=== PATIENT | male | born 1945 | race Caucasian/White ===

== ENCOUNTER 2018-06-01 16:30 | Observation (INO) | payer MEDICARE, OTHER ==
[~2018-06-01] VITALS: Ht 177.8 cm; Wt 86.8 kg
--- NOTE | 2018-06-01 16:50 | NUR ---
PT SENT FROM W/ "SLIGHTLY ELEVATED ST", EKG UPON ARRIVAL NOT STEMI CRITERIA. PT REPORTS INTERMITTENT CP X 1 MONTH, MOST RECENT EPISODE BEGINNING 3 DAYS AGO. PT REPORTS ACHING SENSATION, MOSTLY RESOLVED AT THIS TIME. MD PUENTE AT BEDSIDE TO ASSESS PT.
[2018-06-01] MEDS ORDERED: ASPIRIN 81 MG TABLET CHEW PO ONE (17:00)
[2018-06-01 17:05] LABS: BASOPHILS # (AUTO) 0.02 x10^3/uL (0-0.1); BASOPHILS % (AUTO) 0 % (0-1); EOSINOPHILS # (AUTO) 0.22 x10^3/uL (0-0.4); EOSINOPHILS % (AUTO) 3 % (1-7); LYMPHOCYTES # (AUTO) 1.56 x10^3/uL (1-3.4); LYMPHOCYTES % (AUTO) 22 % (22-44); MD NO; MEAN CORPUSCULAR HEMOGLOBIN 26.7 pg (27.5-34.5); MEAN CORPUSCULAR HGB CONC 33.4 g/dL (33.2-36.2); MEAN CORPUSCULAR VOLUME 79.8 fL (81-97); MEAN PLATELET VOLUME 8.6 fL (7.4-10.4); MONOCYTES # (AUTO) 0.65 x10^3/uL (0.2-0.8); MONOCYTES % (AUTO) 9 % (2-9); NEUTROPHILS # (AUTO) 4.61 x10^3/uL (1.8-6.8); NEUTROPHILS % (AUTO) 65 % (42-75); PLATELET COUNT 234 x10^3/uL (130-400); RED BLOOD COUNT 5.28 x10^6/uL (4.38-5.82)
[2018-06-01] MEDS ORDERED: ASPIRIN 81 MG TABLET CHEW ONE (17:11)
[2018-06-01 17:13] LABS: ALBUMIN 3.9 g/dL (3.4-5.0); ANION GAP 4 mmol/L (5-15); CALCIUM 9.2 mg/dL (8.5-10.1); CHLORIDE 106 mmol/L (98-107)
[2018-06-01 17:18] LABS: TROPONIN I < 0.015 ng/mL (0.000-0.045)
--- NOTE | 2018-06-01 17:36 | NUR ---
ASSUMED CARE OF PT AT THIS TIME. PT AMBULATORY TO RESTROOM W/ STEADY GAIT. FAMILY AT BEDSIDE. PT TOLERATED ACTIVITY WELL, NOTED CHEST PRESSURE AT 1/10 FOLLOWING ACTIVITY. CONTINOUS SPO2 AND CARDIAC MONITORING IN PLACE. VSS
[2018-06-01] MEDS ORDERED: AMLO10TA8 PO (17:46)
[2018-06-01] MEDS ORDERED: METF500T17 PO (17:46)
[2018-06-01] MEDS ORDERED: GLIM2TAB2 PO (17:46)
[2018-06-01] MEDS ORDERED: LOVA20TA2 PO (17:46)
[2018-06-01] MEDS ORDERED: LOSA50TA14 PO (17:46)
[2018-06-01] MEDS ORDERED: ATEN100T PO (17:46)
[2018-06-01] MEDS ORDERED: PIOG30TA67 PO (17:46)
[2018-06-01] MEDS ORDERED: MELO7.5T31 PO (17:46)
[2018-06-01] MEDS ORDERED: LINA5TAB PO (17:46)
--- NOTE | 2018-06-01 18:45 | NUR ---
REPORT CALLED TO EVANGELIST DOUGLAS RN. AWAITING TRANSPORT TO [facility]. REPORT GIVEN TO TAMAR WALSH IN ED WHILE AWAITING TRANSPORT.
[2018-06-01 19:29] VITALS: BP 149/81
[2018-06-01 19:30] VITALS: BP 149/81
[2018-06-01] MEDS ORDERED: morphine SULFATE 10 MG/ML, 1ML IVPush PRN (19:30)
[2018-06-01] MEDS ORDERED: ONDANSETRON ODT 4 MG PO PRN (19:30)
[2018-06-01] MEDS ORDERED: BISACODYL 10 MG SUPP PR PRN (19:30)
[2018-06-01] MEDS ORDERED: ACETAMINOPHEN 325 MG TABLET PO PRN (19:30)
[2018-06-01] MEDS ORDERED: NITROGLYCERIN 0.4 MG BOTTLE (25 TABS) SL PRN (19:30)
[2018-06-01] MEDS ORDERED: POLYETHYLENE GLYCOL 17 GM PACKET PO PRN (19:30)
[2018-06-01 19:57] LABS: HEMOGLOBIN A1C 7.1 % (4.2-6.3)
[2018-06-01] MEDS: INSULIN LISPRO 100 UNITS/ML, PEN SQ-INSULIN SCH (20:38)
[2018-06-01] MEDS: SODIUM CHLORIDE FLUSH 10ML SYR IVF SCH (20:39)
[2018-06-01] MEDS: HEPARIN 5,000 UNITS/ML, 1ML SQ SCH (20:40)
[2018-06-01] MEDS ORDERED: LOVASTATIN 20 MG TABLET PO SCH (21:00)
[2018-06-02 00:06] LABS: TROPONIN I < 0.015 ng/mL (0.000-0.045)
[2018-06-02] MEDS: HEPARIN 5,000 UNITS/ML, 1ML SQ SCH ×2 (03:09→11:30)
[2018-06-02 03:30] VITALS: BP 145/66
[2018-06-02 05:31] LABS: BASOPHILS # (AUTO) 0.02 x10^3/uL (0-0.1); BASOPHILS % (AUTO) 0 % (0-1); EOSINOPHILS % (AUTO) 4 % (1-7); LYMPHOCYTES # (AUTO) 1.28 x10^3/uL (1-3.4); LYMPHOCYTES % (AUTO) 24 % (22-44); MD NO; MEAN CORPUSCULAR HEMOGLOBIN 26.9 pg (27.5-34.5); MEAN CORPUSCULAR HGB CONC 33.5 g/dL (33.2-36.2); MEAN CORPUSCULAR VOLUME 80.2 fL (81-97); MEAN PLATELET VOLUME 8.8 fL (7.4-10.4); MONOCYTES # (AUTO) 0.51 x10^3/uL (0.2-0.8); MONOCYTES % (AUTO) 9 % (2-9); NEUTROPHILS # (AUTO) 3.43 x10^3/uL (1.8-6.8); NEUTROPHILS % (AUTO) 63 % (42-75); PLATELET COUNT 204 x10^3/uL (130-400); RED BLOOD COUNT 4.88 x10^6/uL (4.38-5.82); RED CELL DISTRIBUTION WIDTH 14.2 % (9.4-14.8)
[2018-06-02 05:34] LABS: ALBUMIN 3.5 g/dL (3.4-5.0); ANION GAP 6 mmol/L (5-15); CALCIUM 8.7 mg/dL (8.5-10.1); CHLORIDE 108 mmol/L (98-107)
[2018-06-02 05:40] LABS: ALANINE AMINOTRANSFERASE 21 U/L (12-78); ALKALINE PHOSPHATASE 74 U/L (45-117); BILIRUBIN,TOTAL 0.7 mg/dL (0.2-1.0); CHOLESTEROL, TOTAL 123 mg/dL (140-239); CREATININE 0.77 mg/dL (0.7-1.3); HDL CHOL % 33 % (26-37); HDL CHOLESTEROL (DIRECT) 41 mg/dL (40-60); LDL CHOLESTEROL,CALCULATED 57 mg/dL (54-169); LDL/HDL RATIO 1.4 (0.5-3.0); TRIGLYCERIDES 126 mg/dL (50-200); TROPONIN I < 0.015 ng/mL (0.000-0.045); VLDL CHOLESTEROL 25 mg/dL (0-25)
[2018-06-02] MEDS ORDERED: ASPIRIN 81 MG TABLET CHEW PO SCH (06:00)
[2018-06-02] MEDS: INSULIN LISPRO 100 UNITS/ML, PEN SQ-INSULIN SCH ×3 (07:00→16:00)
[2018-06-02] MEDS ORDERED: MELOXICAM 15 MG TABLET PO SCH (09:00)
[2018-06-02] MEDS ORDERED: AMLODIPINE 10 MG TAB PO SCH (09:00)
[2018-06-02] MEDS: SODIUM CHLORIDE FLUSH 10ML SYR IVF SCH (09:00)
[2018-06-02] MEDS ORDERED: LOSARTAN 50MG TABLET PO SCH (09:00)
[2018-06-02] MEDS ORDERED: SENNA/DOCUSATE TABLET PO SCH (09:00)
[2018-06-02] MEDS ORDERED: ATENOLOL 50 MG TABLET PO SCH (09:00)
[2018-06-02 09:55] VITALS: BP 155/79
[2018-06-02] MEDS ORDERED: REGADENOSON 0.4 MG/5 ML SYRINGE ONE (11:24)
[2018-06-02 15:56] VITALS: BP 150/77
[2018-06-02] MEDS ORDERED: NITR0.4T SL (16:56)
== END 2018-06-02 18:31 | disposition home or self-care (01) ==
LOC: ED 18:09 → 5SO 18:14 → INTOOBSV 18:14
PROVIDERS: ADMIT Internal Medicine; ATTEND Internal Medicine
DX: R07.89 Other chest pain (principal); E11.9 Type 2 diabetes mellitus without complications; E78.5 Hyperlipidemia, unspecified; I10 Essential (primary) hypertension; M17.0 Bilateral primary osteoarthritis of knee; Z88.1 Allergy status to other antibiotic agents; Z79.84 Long term (current) use of oral hypoglycemic drugs; Z88.8 Allergy status to other drugs, medicaments and biological substances; I25.2 Old myocardial infarction; Z79.899 Other long term (current) drug therapy; Z88.0 Allergy status to penicillin
CPT/HCPCS: 36415; 71045; 78452; 80048; 80053; 80061; 82040; 82728; 82962; 83036; 83540; 83550; 83880; 84484; 85025; 93005; 93017; 96372; 99285; A9502; C9898; G0378; J1644; J2785

== ENCOUNTER 2018-12-05 07:18 | Day surgery (SDC) | payer MEDICARE ==
[~2018-12-05] VITALS: Ht 177.8 cm; Wt 88.0 kg
[~2018-12-05 07:18] MED LIST: AMLO-150 PO; AMLO10TA8 PO; ATEN100T PO; DICL100G19 TP; EPINEPHRINE 1 MG/ML, 1ML ONE; GLIM2TAB3 PO; HYDR25TA6 PO; KETOROLAC 60 MG/2 ML ONE; LINA5TAB PO; LOSA50TA14 PO; LOVA20TA2 PO; MELO7.5T31 PO; METF500T17 PO; MULT-658 PO; NITR0.4T28 SL; NITR0.4T41 SL; PIOG15TA4 PO; PIOG30TA67 PO; ROPIvacaine/PF 0.2%, 20 ML ONE; SODIUM CHLORIDE 0.9% 50 ML ONE; TRANEXAMIC ACID 100 MG/ML, 10ML ONE; VITA1CAP PO
[2018-12-05] MEDS ORDERED: GABAPENTIN 300 MG CAPSULE PO STA (07:56)
[2018-12-05] MEDS ORDERED: LACTATED RINGERS 1,000 ML IV SCH (07:56)
[2018-12-05] MEDS ORDERED: ACETAMINOPHEN 500 MG TABLET PO STA (07:56)
[2018-12-05] MEDS ORDERED: FLU VACC QS2019-20 36MOS UP/PF 0.5 ML IM-VACC ONE (08:00)
[2018-12-05] MEDS ORDERED: LIDOCAINE-MPF 1%, 2ML INFIL ONE (08:00)
[2018-12-05] MEDS ORDERED: MIDAZOLAM 1 MG/ML, 2ML ONE (08:07)
[2018-12-05] MEDS ORDERED: FENTANYL PF 250 MCG/5ML ONE (08:08)
[2018-12-05] MEDS ORDERED: PROPOFOL 10 MG/ML, 20ML ONE (08:55)
[2018-12-05] MEDS ORDERED: CEFAZOLIN 1,000 MG ONE (08:55)
[2018-12-05] MEDS ORDERED: ONDANSETRON 2MG/ML, 2ML ONE (08:55)
[2018-12-05] MEDS ORDERED: DEXAMETHASONE 4 MG/ML, 1ML ONE (08:55)
[2018-12-05] MEDS ORDERED: SUCCINYLCHOLINE 20 MG/ML, 10ML ONE (08:55)
[2018-12-05] MEDS ORDERED: MAGNESIUM HYDROXIDE 8%, 30ML UDC PO PRN (09:00)
[2018-12-05] MEDS ORDERED: HYDROmorphone 2 MG/ML, 1ML IVPush PRN (09:00)
[2018-12-05] MEDS ORDERED: PSYLLIUM PACKET PO PRN (09:00)
[2018-12-05] MEDS ORDERED: SENNA/DOCUSATE TABLET PO PRN (09:00)
[2018-12-05] MEDS ORDERED: DIPHENHYDRAMINE 25 MG CAPSULE PO PRN (09:00)
[2018-12-05] MEDS ORDERED: ONDANSETRON 4 MG TABLET PO PRN (09:00)
[2018-12-05] MEDS ORDERED: METOCLOPRAMIDE 10MG TABLET PO PRN (09:00)
[2018-12-05] MEDS ORDERED: POLYETHYLENE GLYCOL 17 GM PACKET PO PRN (09:00)
[2018-12-05] MEDS ORDERED: PROMETHAZINE 25 MG/ML, 1ML IM PRN (09:00)
[2018-12-05] MEDS ORDERED: [UNRECOGNIZED DRUG - OTHER] IV SCH (09:00)
[2018-12-05] MEDS ORDERED: DIPHENHYDRAMINE 50 MG/ML, 1ML IVPush PRN (09:00)
[2018-12-05] MEDS ORDERED: ACETAMINOPHEN 650 MG/20.3 ML UDC PO PRN (09:00)
[2018-12-05] MEDS ORDERED: ONDANSETRON 2MG/ML, 2ML IV PRN (09:00)
[2018-12-05] MEDS ORDERED: ALUMINUM/MAG/SIMETHICONE 30 ML UDC PO PRN (09:00)
[2018-12-05] MEDS ORDERED: METOCLOPRAMIDE 5 MG/ML, 2ML IV PRN (10:00)
[2018-12-05] MEDS ORDERED: hydrALAzine 20 MG/ML, 1ML IV PRN (10:00)
[2018-12-05] MEDS ORDERED: OXYcodone 5 MG/5 ML ORAL.SOL UDC PO PRN (10:00)
[2018-12-05] MEDS ORDERED: HYDROmorphone 1 MG/ML, 1ML INJ IV PRN (10:00)
[2018-12-05] MEDS ORDERED: LABETALOL 5MG/ML, 20ML IV PRN (10:00)
[2018-12-05] MEDS ORDERED: MEPERIDINE/PF 25MG/0.5ML IVPush PRN (10:00)
[2018-12-05] MEDS ORDERED: ONDANSETRON 2MG/ML, 2ML IVPush PRN (10:00)
[2018-12-05] MEDS ORDERED: ALBUTEROL SULFATE 2.5 MG/3 ML NPPB PRN (10:00)
[2018-12-05] MEDS ORDERED: KETOROLAC 30 MG/1 ML IV PRN (10:00)
[2018-12-05] MEDS ORDERED: PROMETHAZINE 25 MG/ML, 1ML IV PRN (10:00)
[2018-12-05] MEDS ORDERED: KETOROLAC 30 MG/1 ML ONE (10:47)
[2018-12-05] MEDS: KETOROLAC 30 MG/1 ML IV SCH ×2 (10:50→20:12)
[2018-12-05] MEDS ORDERED: FENTANYL PF 100 MCG/2ML ONE (10:53)
[2018-12-05] MEDS: FENTANYL PF 100 MCG/2ML IV PRN ×2 (10:55→11:14)
[2018-12-05] MEDS ORDERED: TRANEXAMIC ACID 1,000 MG in SODIUM CHLORIDE 0.9% 100 ML IVPB ONE (11:00)
[2018-12-05 12:05] VITALS: BP 127/68
[2018-12-05] MEDS ORDERED: DEXAMETHASONE 4 MG/ML, 1ML IVPush SCH (13:00)
[2018-12-05] MEDS ORDERED: NITROGLYCERIN 0.4 MG BOTTLE (25 TABS) SL PRN (13:00)
[2018-12-05 13:15] VITALS: BP 131/74
[2018-12-05 13:50] VITALS: BP 134/73
[2018-12-05] MEDS: PIOGLITAZONE 15 MG TABLET PO SCH (13:56)
[2018-12-05] MEDS: LOSARTAN 50MG TABLET PO SCH (13:56)
[2018-12-05] MEDS: LINAGLIPTIN 5 MG TAB PO SCH (13:56)
[2018-12-05] MEDS: TAMSULOSIN 0.4 MG CAP.ER.24H PO SCH (13:56)
[2018-12-05] MEDS: D5%-0.45NACL+KCL 20MEQ 1,000 ML IV SCH ×2 (14:54→23:45)
[2018-12-05] MEDS: metFORMIN 500 MG TABLET PO SCH (17:51)
[2018-12-05] MEDS: GLIMEPIRIDE 1 MG TABLET PO SCH (17:51)
[2018-12-05] MEDS: CEFAZOLIN PMX 1GM/50ML 50 ML IVPB SCH (17:52)
[2018-12-05] MEDS: ASPIRIN 81 MG TABLET EC PO SCH ×2 (17:58→20:11)
[2018-12-05] MEDS: DOCUSATE 100 MG CAPSULE PO SCH (20:11)
[2018-12-05 20:14] VITALS: BP 105/55
[2018-12-05 20:27] VITALS: BP 118/61
[2018-12-05] MEDS: OXYcodone IR 5MG TABLET PO PRN (20:32)
[2018-12-05] MEDS ORDERED: LOVASTATIN 20 MG TABLET PO SCH (21:00)
[2018-12-05 23:47] VITALS: BP 115/59
[2018-12-06] MEDS: CEFAZOLIN PMX 1GM/50ML 50 ML IVPB SCH (01:32)
[2018-12-06] MEDS: OXYcodone IR 5MG TABLET PO PRN ×3 (01:41→12:43)
[2018-12-06 02:53] VITALS: BP 112/61
[2018-12-06] MEDS: KETOROLAC 30 MG/1 ML IV SCH (04:02)
[2018-12-06] MEDS ORDERED: ATENOLOL 50 MG TABLET PO SCH (06:00)
[2018-12-06 07:22] VITALS: BP 119/62
[2018-12-06] MEDS: LINAGLIPTIN 5 MG TAB PO SCH (08:34)
[2018-12-06] MEDS: PIOGLITAZONE 15 MG TABLET PO SCH (08:34)
[2018-12-06] MEDS: metFORMIN 500 MG TABLET PO SCH (08:35)
[2018-12-06] MEDS: GLIMEPIRIDE 1 MG TABLET PO SCH (08:35)
[2018-12-06] MEDS: DOCUSATE 100 MG CAPSULE PO SCH (08:35)
[2018-12-06] MEDS: ASPIRIN 81 MG TABLET EC PO SCH (08:35)
[2018-12-06] MEDS: TAMSULOSIN 0.4 MG CAP.ER.24H PO SCH (08:36)
[2018-12-06] MEDS: D5%-0.45NACL+KCL 20MEQ 1,000 ML IV SCH (08:36)
[2018-12-06] MEDS: LOSARTAN 50MG TABLET PO SCH (08:36)
[2018-12-06] MEDS ORDERED: MULTIVITAMIN 1 TABLET PO SCH (09:00)
[2018-12-06] MEDS ORDERED: HYDROCHLOROTHIAZIDE 25 MG TABLET PO SCH (09:00)
[2018-12-06] MEDS ORDERED: AMLODIPINE 5 MG TABLET PO SCH (09:00)
[2018-12-06] MEDS ORDERED: ASPI-515 PO (10:09)
[2018-12-06] MEDS ORDERED: FLU VACC QS2019-20 36MOS UP/PF 0.5 ML IM-VACC ONE (11:30)
== END 2018-12-06 13:07 | disposition home or self-care (01) ==
LOC: OUT 07:18 → ORIP 08:42 → UNDOADMOB 08:42 → ORIP 11:53 → 4NE 11:53 → DCLOUNGE 12-06 12:52 → 4NE 12-06 12:52 → UNDODISOB 12-06 13:07 → OUT 12-06 13:07
PROVIDERS: ATTEND Orthopaedic Surgery
DX: M17.0 Bilateral primary osteoarthritis of knee (principal); M25.761 Osteophyte, right knee; M21.162 Varus deformity, not elsewhere classified, left knee; M21.161 Varus deformity, not elsewhere classified, right knee; Z23 Encounter for immunization; E11.9 Type 2 diabetes mellitus without complications; Z79.84 Long term (current) use of oral hypoglycemic drugs; Z79.899 Other long term (current) drug therapy; Z88.1 Allergy status to other antibiotic agents; Z88.8 Allergy status to other drugs, medicaments and biological substances
CPT/HCPCS: 27447; 36415; 64447; 73560; 82962; 85014; 85018; 90471; 90686; 96365; 96366; 96375; 96376; 97110; 97161; C1713; C1776; J0171; J0330; J0690; J1100; J1885; J2250; J2405; J2704; J2795; J3010; J3480; J7120; G0378